=== PATIENT | female | born 2000 | race Hispanic/Latino ===

== ENCOUNTER → 2020-03-09 08:38 | Outpatient (CLI) | payer OTHER, SELFPAY ==
[2020-03-09 09:45] LABS: Add Manual Diff / Slide Review NO; Basophils Absolute Auto 0 /uL (0-100); Basophils Percent Auto 0.6 % (0-2); Eosinophils Absolute Auto 100 /uL (0-450); Eosinophils Percent Auto 1.2 % (2-4); Hematocrit 32.5 % (36-46); Hemoglobin 9.8 g/dL (12.0-16.0); Lymphocytes Absolute Auto 1400 /uL (1100-4500); Lymphocytes Percent Auto 27.5 % (25-40); Mean Corpuscular HGB Conc 30.3 % (30-36); Mean Corpuscular Volume 65.9 fL (80-100); Monocytes Absolute Auto 300 /uL (0-900); Monocytes Percent Auto 6.5 % (3-14); Neutrophils Absolute Auto 3200 /uL (1500-7000); Neutrophils Percent Auto 64.2 % (50-75); Platelet Count 242 X10^3/uL (150-400); Red Blood Cell Count 4.93 X10^6/uL (4.0-5.2); Red Cell Distribution Width 16.7 % (11.6-14.8)
[2020-03-09 10:03] LABS: Hypochromasia 2+; Microcytosis 3+
[2020-03-09 10:45] LABS: Alanine Aminotransferase 14 IU/L (<35); Albumin 4.1 g/dL (3.5-5.0); Albumin Globulin Ratio 1.2 (1.0-2.8); Alkaline Phosphatase 83 U/L (38-126); Aspartate Aminotransferase 21 IU/L (14-36); BUN Creatinine Ratio 23.8 (6-22); Bilirubin Total 0.5 mg/dL (0.2-1.3); Blood Urea Nitrogen 15 mg/dL (7-17); Calcium 9.5 mg/dL (8.4-10.2); Carbon Dioxide 29 mmol/L (22-32); Chloride 104 mmol/L (98-107); Cholesterol 162 mg/dL (140-199); Estimated Glomerular Filt Rate > 60.0 mL/min (>60); Globulin 3.3 g/dL (1.7-4.1); Glucose 88 mg/dL (70-100); HDL Cholesterol 72 mg/dL (40-60); HEMOLYSIS < 15 (0-50); LDL Cholesterol Calculated 81 mg/dL (<100); Potassium 4.2 mmol/L (3.4-5.1); Sodium 137 mmol/L (137-145); Total Protein 7.4 g/dL (6.3-8.2); Triglycerides 44 mg/dL (35-150)
== END ==
PROVIDERS: PCP Registered Nurse; Referring Provider Registered Nurse; Visit Provider Registered Nurse
DX: Z00.00 Encounter for general adult medical examination without abnormal findings (principal); Z82.49 Family history of ischemic heart disease and other diseases of the circulatory system
CPT/HCPCS: 36415; 80053; 80061; 85025

== ENCOUNTER → 2020-04-11 13:16 | Outpatient (CLI) | payer OTHER, SELFPAY ==
[2020-04-11 15:08] LABS: Add Manual Diff / Slide Review NO; Basophils Absolute Auto 0 /uL (0-100); Basophils Percent Auto 0.7 % (0-2); Eosinophils Absolute Auto 100 /uL (0-450); Hemoglobin 10.9 g/dL (12.0-16.0); Lymphocytes Absolute Auto 1800 /uL (1100-4500); Lymphocytes Percent Auto 28.5 % (25-40); Mean Corpuscular HGB Conc 30.2 % (30-36); Mean Corpuscular Hemoglobin 21.9 PG (26-34); Mean Corpuscular Volume 72.4 fL (80-100); Monocytes Absolute Auto 400 /uL (0-900); Monocytes Percent Auto 6.2 % (3-14); Neutrophils Absolute Auto 3900 /uL (1500-7000); Neutrophils Percent Auto 63.6 % (50-75); Platelet Count 277 X10^3/uL (150-400); Red Blood Cell Count 4.96 X10^6/uL (4.0-5.2); White Blood Cell Count 6.2 X10^3/uL (4.5-11.0)
[2020-04-11 16:07] LABS: Hypochromasia 1+; Microcytosis 1+
== END ==
PROVIDERS: PCP Registered Nurse; Referring Provider Registered Nurse; Visit Provider Registered Nurse
DX: D64.9 Anemia, unspecified (principal)
CPT/HCPCS: 36415; 85025

== ENCOUNTER → 2021-01-03 13:11 | Outpatient (CLI) | payer OTHER, SELFPAY ==
--- NOTE | 2021-01-03 13:13 | DI.RAD.S_ITS ---
PROCEDURE: XR ANKLE LT MIN 3V INDICATIONS: pain after fall TECHNIQUE: 3 views of the ankle were acquired. COMPARISON: None. FINDINGS: Bones: No fractures or dislocations. Ankle mortise is normally aligned. No suspicious bony lesions. Soft tissues: There is periarticular soft tissue swelling anterolaterally. No definite tibiotalar joint effusion with evaluation limited due to obliquity of the lateral view. Achilles tendon appears intact. IMPRESSION: 1. No fracture or dislocation. Dictated by: Karsten Torre M.D. on 01/03/2021 at 13:45 Approved by: Karsten Torre M.D. on 01/03/2021 at 13:49
== END ==
PROVIDERS: PCP Registered Nurse; Referring Provider Nurse Practitioner; Visit Provider Nurse Practitioner
DX: M25.572 Pain in left ankle and joints of left foot (principal); M79.89 Other specified soft tissue disorders
CPT/HCPCS: 73610

== ENCOUNTER → 2021-03-19 09:22 | Outpatient (CLI) | payer OTHER, SELFPAY ==
[2021-03-19 10:14] LABS: Add Manual Diff / Slide Review NO; Basophils Absolute Auto 0 /uL (0-100); Basophils Percent Auto 0.5 % (0-2); Eosinophils Absolute Auto 0 /uL (0-450); Eosinophils Percent Auto 0.6 % (2-4); Hematocrit 34.3 % (36-46); Hemoglobin 11.2 g/dL (12.0-16.0); Lymphocytes Absolute Auto 1200 /uL (1100-4500); Lymphocytes Percent Auto 16.7 % (25-40); Mean Corpuscular HGB Conc 32.5 % (30-36); Mean Corpuscular Hemoglobin 23.2 PG (26-34); Mean Corpuscular Volume 71.5 fL (80-100); Monocytes Absolute Auto 300 /uL (0-900); Monocytes Percent Auto 4.5 % (3-14); Neutrophils Absolute Auto 5700 /uL (1500-7000); Neutrophils Percent Auto 77.7 % (50-75); Platelet Count 254 X10^3/uL (150-400); Red Cell Distribution Width 14.6 % (11.6-14.8); White Blood Cell Count 7.3 X10^3/uL (4.5-11.0)
[2021-03-19 11:36] LABS: Appearance Urine UA CLEAR; Bilirubin Urine UA NEGATIVE (NEGATIVE); Color Urine UA YELLOW; Glucose Urine UA NEGATIVE (Negative); Ketones Urine UA TRACE (NEGATIVE); Leukocyte Esterase Urine UA NEGATIVE (NEGATIVE); Nitrite Urine UA NEGATIVE (Negative); Occult Blood Urine UA NEGATIVE (Negative); Protein Urine UA NEGATIVE (Negative); Urobilinogen Urine UA 0.2 E.U./dL (0.2)
[2021-03-19 15:57] LABS: HIV 1 & 2 Ab/Ag 4th Gen Combo NEGATIVE (NEGATIVE); Hep C Virus Ab w/Reflex Quant NEGATIVE s/c (NEGATIVE); Hepatitis B Surface Antigen NEGATIVE s/c (NEGATIVE)
[2021-03-20 11:54] LABS: Varicella IgG Antibody 2384 index (Immune >165)
[2021-04-26 11:05] LABS: RPR Screen REACTIVE
== END ==
PROVIDERS: PCP Registered Nurse; Referring Provider Obstetrics & Gynecology; Visit Provider Obstetrics & Gynecology
DX: Z34.01 Encounter for supervision of normal first pregnancy, first trimester (principal)
CPT/HCPCS: 36415; 80055; 81003; 86787; 86803; 86850; 86900; 86901; 87086; 87389

== ENCOUNTER → 2021-04-23 08:48 | Outpatient (CLI) | payer OTHER, SELFPAY ==
[2021-04-25 14:45] LABS: Treponema pallidum Antibodies Non Reactive (Non Reactive)
== END ==
PROVIDERS: PCP Registered Nurse; Referring Provider Obstetrics & Gynecology; Visit Provider Obstetrics & Gynecology
DX: A53.0 Latent syphilis, unspecified as early or late (principal); Z34.82 Encounter for supervision of other normal pregnancy, second trimester
CPT/HCPCS: 36415; 86780

== ENCOUNTER → 2021-05-21 08:59 | Outpatient (CLI) | payer OTHER, SELFPAY ==
[2021-05-23 21:07] LABS: AFP, Serum 66.6 ng/mL (.); Estriol, Free 1.49 ng/mL (.); Inhibin A, Dimeric 115.69 pg/mL (.); Inhibin A, MoM 0.84 (.); Maternal Ethnicity Other (.); Maternal Weight 191 lbs (.); Number of Fetuses No (.); OSBR Risk 1 IN 1477 (.); Results Report (.); Test Results *Screen Negative* (.); hCG, MoM 1.29 (.); hCG, Serum 31917 mIU/mL (.)
== END ==
PROVIDERS: PCP Registered Nurse; Referring Provider Obstetrics & Gynecology; Visit Provider Obstetrics & Gynecology
DX: Z34.02 Encounter for supervision of normal first pregnancy, second trimester (principal); Z3A.18 18 weeks gestation of pregnancy
CPT/HCPCS: 36415; 82105; 82677; 84702; 86336

== ENCOUNTER → 2021-06-15 13:50 | Outpatient (CLI) | payer OTHER, MEDICAID, SELFPAY ==
--- NOTE | 2021-06-15 13:51 | DI.US.S_ITS ---
PROCEDURE: US OB >= 14 WEEKS FETUS INDICATIONS: ANATOMY OUTSIDE/PRIOR DATING DATA: Last menstrual period (LMP): 01/14/2021 LMP-based estimated date of delivery (COLBY): 10/21/2020. First dating scan (date and location): 03/19/2021. Estimated date of delivery (COLBY) from first dating scan: 10/28/2021. The calculations are made using the ultrasound COLBY of 10/28/2021. TECHNIQUE: Real-time scanning was performed of the fetus, with image documentation and biometric measurements. COMPARISON: [facility], , US OB >= 14 WEEKS FETUS, 05/21/2021, 8:54. FINDINGS: General: A single living intrauterine gestation is present. Presentation: Breech. Placenta: Placental position is anterior right lateral , without previa. Amniotic fluid index: 13.9 cm, normal range is 5-24 cm. heart rate: 153 beats per minute. Maternal cervical canal: 3.4 cm cm long. Normal lower limit is 2.5 cm. biometrics: Biparietal diameter: 20 weeks 6 days Head circumference: 21 weeks 3 days Abdominal circumference: 21 weeks 2 days Femur length: 21 weeks 1 day Clinically estimated gestational age: 20 weeks 5 days Composite gestational age from present scan: 21 weeks 1 day Estimated weight and percentile: 407 g; 70 second percentile Anatomic survey: Neuro: Ventricles are non-dilated at less than 10 mm. Cisterna magna is normal at 3-11 mm. Cerebellum is normal in size and morphology. Nuchal skin fold: Normal at less than 6 mm between 14-21 weeks gestational age. Face: Not well seen. Spine: No evidence for spina bifida. Heart: 4-chambered heart is present, with normal ventricular outflow tracts. Diaphragm: Diaphragm is intact. Stomach: Left-sided stomach is present. Kidneys: No hydronephrosis. Normal is less than 5 mm in 2nd trimester, less than 7 mm in 3rd trimester. Cord: 3-vessel cord has orthotopic insertion. Bladder: Normal in size. Extremities: All 4 extremities identified. IMPRESSION: 1. Normal interval growth. 2. face suboptimally visualized; otherwise normal anatomy. Follow-up recommended. We strive to produce accurate, complete, and clear reports of imaging services. To assist us in improving patient care, this report was composed using standard report templates and voice recognition software. Therefore, it may contain abnormal punctuation, insertions and/or omissions. Occasional wrong-word or sound-alike substitutions may occur. Though we review the report and make efforts to correct it, we do recommend that the report be read carefully in proper context to recognize any text inaccuracies. Dictated by: Dylan VILLAFUERTE Interpreted: Sina Ballard MD on 06/15/2021 at 14:56 Approved by: Sina Ballard M.D. on 06/15/2021 at 15:15
== END ==
PROVIDERS: PCP Registered Nurse; Referring Provider Obstetrics & Gynecology; Visit Provider Obstetrics & Gynecology
DX: Z34.92 Encounter for supervision of normal pregnancy, unspecified, second trimester (principal); Z3A.21 21 weeks gestation of pregnancy
CPT/HCPCS: 76811

== ENCOUNTER → 2021-07-23 09:13 | Outpatient (CLI) | payer OTHER, MEDICAID, SELFPAY ==
[2021-07-23 12:06] LABS: Hematocrit 33.3 % (36-46)
[2021-07-23 12:15] LABS: GTT (PREG) 1 Hour PP 50gm Dose 73 mg/dL (76-139)
== END ==
PROVIDERS: Referring Provider Obstetrics & Gynecology; Visit Provider Obstetrics & Gynecology
DX: Z34.02 Encounter for supervision of normal first pregnancy, second trimester (principal); Z3A.36 36 weeks gestation of pregnancy
CPT/HCPCS: 36415; 82950; 85014; 85018

== ENCOUNTER → 2021-09-21 17:37 | Outpatient (CLI) | payer OTHER, MEDICAID, SELFPAY ==
[2021-09-22 13:20] LABS: Strep Grp B PCR NEG for Grp B Strep
== END ==
PROVIDERS: PCP Obstetrics & Gynecology; Visit Provider Obstetrics & Gynecology
DX: Z34.03 Encounter for supervision of normal first pregnancy, third trimester (principal)
CPT/HCPCS: 87653

== ENCOUNTER 2021-10-26 06:28 | Inpatient (IN) | payer OTHER, MEDICAID, SELFPAY ==
[2021-10-26] MEDS: LACTATED RINGERS 1,000 ML 100 ML IV ×2 (07:25→19:57)
--- NOTE | 2021-10-26 09:14 | P.HPOB_ITS ---
OB HPI Date/Time Date of admission: 10/26/21 Date Patient Seen: 10/26/21 Time Patient Seen: 08:50 History of Present Condition Chief complaint: induction : 1 Para: 0 Estimated Gestational Age (weeks): [id number] Narrative: Ana Maria Galicia is a 21 year old female with COLBY 10/21/2021 by LMP and consistent first-trimester ultrasound. She is being admitted at 40 weeks 5 days for induction of labor for post-term . was uncomplicated. On her initial labs she did have a positive RPR, but confirmatory treponemal testing was negative. She reports feeling some intermittent mild contractions since her last visit, but nothing strong or persistent. Denies leakage of fluid or vaginal bleeding. Feeling good movement. Indications Indication for induction OB: post dates History of Present care: good care Dating criteria: LMP confirmed by 1st trimester US Obstetrical complications: none Preadmission Labs Blood type: A (+) positive -: Antibody screen: negative, GBS status: negative, HBsAG: negative, HSV 1: negative, HSV 2: negative and RPR/VDLR: positive (Treponemal pallidum antibody nonreactive) -: Chlamydia screen: not detected and Gonorrhea screen: not detected -: Rubella: immune and Varicella: immune HCAB: negative PAP: Normal Quad screen: Normal 1 hr GTT: 73 Evaluation Evaluation Baseline heart rate: 135 Variability: Moderate (11-25) monitor accelerations: Present Category of Tracing: Reactive Status: Category l Dilation (cm): 1 Effacement (%): 50 Dilation: 1-2 cm Effacement: 40-50% station: -3 Position of cervix: posterior Consistency: soft Price score: 4 Comments: Pt had vasovagal reaction from discomfort with IV placement. She had drop in BP and felt symptomatic with feeling nauseated and lightheaded. heart rate pattern subsequently had a prolonged deceleration for 6 minutes, with enrique 60. FHR then recovered to baseline and continued with moderate variability and accelerations. Back to category 1. Has been category 1 for over 2hours now. Misoprostil ordered, placed at 0945 [facility] Medical History Ankle sprain Family history of heart disease Surgical History [place] teeth extracted (~2018) Family History (Updated 03/15/21 @ 12:20 by Alexa Noriega RN) Grandfather Hypertension Hyperlipidemia Grandmother Hypertension Hyperlipidemia Mental health problem Grandfather Diabetes mellitus History of heart disease Grandmother Hyperlipidemia Mother Healthy adult Father Healthy adult Social History marital status: unmarried,single details: FOB involved & supportive, living separately. number of children: 0 household members: family (Lives w/ parents.) lives independently: Yes caregiver/support person: No housing: house pets and animals: Yes (2 dogs: safe) education level: college (2 year college, professional degree) occupational status: employed ([employer].) current occupational exposures/hazards: No hyacinth/jehovah's witness: Quaker special hyacinth needs: No seatbelt use: always helmet use: Yes water heater temp set < 120 deg: Yes working smoke detector in home: Yes fire extinguisher in home: Yes carbon monox detector in home: Yes firearms in home: No do you feel safe at home: Yes Smoking Status: Never smoker second hand exposure: No alcohol intake: former (Pre-: occasional/social/rare. ) substance use type: does not use during the past year weight has: remained stable well-balanced diet: daily or most days daily servings fruits/ve or more times/day caffeine: No Type(s) of exercise: walking frequency: 3-4 times per week duration: 30-45 minutes/day Meds Home Medications and Allergies Home Medications Medication Instructions Recorded Confirmed Type prenat.vits,macho,[id number]-[id number] 1 tab PO DAILY 03/15/21 10/18/21 History Allergies Allergy/AdvReac Type Severity Reaction Status Date / Time No Known Drug Allergies Allergy Verified 09/27/21 11:29 OB Exam Narrative Exam Narrative: Vital signs: Temp 35.6C, BP 132/76, then 116/55 Pulse 65 HENMT Head: normal to inspection and normocephalic Resp Effort & Inspection: normal respiratory effort Cardio Rate: regular rate GI Inspection: normal to inspection External Female Exam: Yes normal external appearance Presentation: vertex Assessment and Plan Assessment and Plan Assessment and Plan narrative: 21 yo G1 female [id number] admitted for induction of labor for post-term . GBS negative. Unfavorable cervix. Misoprostol 25 mcg placed per vagina for cervical ripening to start her induction of labor. Time Spent with Patient Total time spent with greater than 50% in coordination of care (as documented) at patient's floor/unit and/or counseling patient:: 15-24 minutes
[2021-10-26] MEDS: miSOPROStoL 25 MCG TABLET VAG (09:34)
[2021-10-26 10:38] VITALS: BP 128/70
--- NOTE | 2021-10-26 15:47 | SUR.OPER ---
Supine on Padded OR bed, head on pillow, safety belt at thigh, arms secured on padded arm boards at <90 degrees abduction. Bump under right buttock. Legs uncrossed with pillow under knees, gel pad to heels, tape over blanket to lower legs.
[2021-10-26 15:57] LABS: COVID19 -Nasal RAPID Negative (Negative)
--- NOTE | 2021-10-26 16:05 | PM.OBPNLAB ---
Date/Time Date Patient Seen: 10/26/21 Time Patient Seen: 16:00 Pain Control Pain control: other (not in labor) Pelvic Exam Dilation (cm): 1 Effacement (%): 50 station: -3 Amniotic membrane status: Intact Contractions Contractions on admission: irregular (occasional) Contraction pattern: Irregular Contraction intensity: Mild Status status: Category ll Heart Rate Baseline: 135 Monitor Accelerations: Episodic Monitor Decelerations: Variable Monitor Variability: Moderate Comments: FHR with occasional severe variable deceleration, but occurs with standing up, positional Assessment and Plan Plan: Comments: EFM Cat 2? with?occasional variable deceleration but decleration is severe, occurs after standing for bathroom, positional. Also a moderate decel now when sitting uprigth in bed, forward. Discussion held that there may be umbilical cord low in the uterus or somewhere between the baby's body in the uterus, causing compression with standing. Discussed risk for development of recurrent deceleration is and severe or prolonged decelerations during labor with pushing phase. Would observe closely and if she started having recurrent moderate to severe variable decelerations, then would recommend proceeding with . Since there is the risk of a prolonged deceleration with active labor or with pushing, which can lead to a more urgent , I also gave her the option of proceeding with a primary section for delivery. ? Upon discussion, patient opted for section prior to labor rather than risk a prolonged deceleration during labor or urgent . I reviewed the procedure. Discussed surgical risks, less than 1% risk but includes risk of bleeding, infection, injury to adjacent organs including bowel and bladder as well as risk of injury to the baby. Verbal and written consent obtained. OR crew and family medicine physician on-call for Peds called.
--- NOTE | 2021-10-26 16:13 | P.OP.PRE_ITS ---
Pre-operative Note COVID-19 COVID-19 status: Negative Result date/Date tested (Pos, Neg/Pending): 10/26/21 Criteria for continued procedure: Delay expected to result in less-positive ultimate med/surg outcome Interval Note History & Physical reviewed/Exam performed by Physician: Yes Changes to H&P: No H&P completed within 30 days and has changed as indicated here:: No maternal c hanges. EFM Cat 2 with variable deceleration after standing for bathroom or with sitting forward, moderate to severe. upon discussion, patient opted for section prior to labor rather than risk Possible severe deceleration needs an urgent during labor.
[2021-10-26 16:28] LABS: Add Manual Diff / Slide Review NO; Basophils Absolute Auto 100 /uL (0-100); Basophils Percent Auto 0.7 % (0-2); Eosinophils Absolute Auto 100 /uL (0-450); Eosinophils Percent Auto 0.6 % (2-4); Hematocrit 32.8 % (36-46); Hemoglobin 11.2 g/dL (12.0-16.0); Lymphocytes Absolute Auto 1800 /uL (1100-4500); Lymphocytes Percent Auto 18.9 % (25-40); Mean Corpuscular HGB Conc 34.3 % (30-36); Mean Corpuscular Hemoglobin 28.6 PG (26-34); Mean Corpuscular Volume 83.4 fL (80-100); Monocytes Absolute Auto 700 /uL (0-900); Monocytes Percent Auto 7.2 % (3-14); Neutrophils Absolute Auto 6700 /uL (1500-7000); Neutrophils Percent Auto 72.6 % (50-75); Platelet Count 200 X10^3/uL (150-400); Red Blood Cell Count 3.93 X10^6/uL (4.0-5.2); White Blood Cell Count 9.3 X10^3/uL (4.5-11.0)
--- NOTE | 2021-10-26 17:22 | SUR.OPER ---
viable male infant delivered at 1717. cord blood and placenta to ob with rn
[2021-10-26 18:23] VITALS: BP 122/64; PULSE 62; RESP 13; TEMP 36.8; O2SAT 99
[2021-10-26 18:26] VITALS: BP 123/75; PULSE 68; RESP 13; O2SAT 99
[2021-10-26] MEDS: KETOROLAC 30 MG/ML VIAL IV (18:30)
[2021-10-26] MEDS: ONDANSETRON 4 MG/2 ML INJ IV ×2 (18:30→21:02)
[2021-10-26 18:39] VITALS: BP 134/68; PULSE 64; RESP 15; O2SAT 100
[2021-10-26 18:44] VITALS: BP 130/81; PULSE 66; RESP 12; O2SAT 99
--- NOTE | 2021-10-26 18:55 | P.OP_ITS ---
Operative Date/Time/Diagnoses Date of procedure: 10/26/21 Time of procedure: 17:30 Pre-op diagnosis: [id number] . Severe variable decelerations, positional, occuring prior to labor. Post-op diagnosis: same Procedure & Clinicians Procedure: Primary lower transverse section Same procedure as scheduled: Yes Indications: 21-year-old G1 female who was admitted for induction of labor this morning. She received misoprostol 25 mcg for unfavorable cervix. EFM was category 1, except after getting up to use the bathroom, she had a severe deceleration. This recurred with standing a 2nd time and position with sitting forward. Discussed possible umbilical cord compression, umbilical cord may be low in the uterus or between body in uterus around part of the body. Discussion held with her that these may start to recur routinely during labor and if significant decelerations repetitively, if not close to delivery then would recommend . Discussed risks for a prolonged deceleration that can lead to more urgent C- section. Discussed with her heart rate may remain fairly normal during labor with only occasional deceleration are correct with position change but discussion that risks for a prolonged deceleration was also held and patient given option for primary as well. I discussed if she had a , implications for a subsequent , decision regarding attempted or not and how she would need to be monitored during labor if she attempted this as well as not done at this hospital, would need to travel to another hospital to have availability for more urgent . After discussion among she and her significant other they desired proceeding with primary section. Surgeon: Amanda Ovalle Magistrate Assistant: Carrie Eastman Click Yes if Unassisted: No Anesthesia Type: Spinal Operative Notes Findings: Meconium fluid noted upon entry into the uterus. No visible cord upon entry into the uterus. No nuchal cord. Umbilical cord was normal in appearance. A baby boy was delivered with Apgars of 9 and 9. Weight 7lb7oz. Baby was vigorous on delivery, crying spontaneously. Closure Type: primary Estimated Blood Loss (mL): 400 Blood products transfused: none Procedure in detail: IV fluids: 1700 ml crystalloid Description of procedure: She was transferred from the center to the operating room. After an adequate level of spinal anesthesia was obtained, she was placed in the supine position, Yeung catheter was placed and she was prepped and draped in routine sterile fashion. A Pfannenstiel skin incision was made in the lower abdomen and carried down to the level of the fascia. The fascia was incised in the midline and extended transversely. The superior and inferior edges of the fascia were elevated and dissected off the rectus muscles with bovie, sharp and blunt dissection. The muscles were bluntly in the midline. The parietal peritoneum was elevated, incised and extended bluntly. The bladder blade was placed. The visceral peritoneum was elevated off the lower uterus, incised and the bladder flap was bluntly created. The bladder blade retractor was placed. A transverse incision was made in the lower uterus with final entry into the uterus being bluntly. The incision was extended transversely with blunt dissection. Meconium fluid was noted. The head was elevated to the uterine incision and delivered through the incision with some mild fundal pressure. Anterior and posterior shoulders followed by the body were delivered without difficulty. The cried spontaneously. Cord was clamped and cut and the infant was handed off to respiratory therapy who was present for delivery. Cord blood was obtained a specimen. The placenta was expressed with uterine massage and cord traction. It appeared intact with a normal three-vessel cord. The uterus was swept clean of adherent clots and membranes. The uterus was brought through the abdominal incision and closed in 2 layers with 0 Vicryl, the 1st layer being in running locking continuous fashion and the 2nd layer being in a vertical imbricating type fashion. Hemostasis was noted. The tubes and ovaries were inspected and noted to be normal. Posterior to the uterus was suctioned of some blood and fluid. The uterus was placed back into the maternal abdomen. The paracolic gutters were inspected and wiped of some minimal blood and fluid. The anterior cul-de-sac was inspected and some clot was removed. The uterine incision was re- inspected and good hemostasis was noted. The pelvis was irrigated and suctioned.. Repeat inspection showed continued hemostasis. The abdomen was closed. The muscles were re-approximated with 3 interrupted sutures of 0 Vicryl. The fascia was closed with running continuous suture of 0 Vicryl. The skin was closed with a subcuticular suture of 4 0 Monocryl. Steri-Strips and sterile Aquacel dressing was placed. She tolerated the procedure well and went to the recovery room in stable condition. Complications: none Post-operative Condition: stable Disposition: PACU Plan for aftercare: Transferred subsequently to the floor in good condition.
[2021-10-26] MEDS: diphenhydrAMINE 50 MG/ML VIAL 25 MG IV (21:02)
[2021-10-27] MEDS: KETOROLAC 30 MG/ML VIAL IV ×3 (03:26→15:38)
[2021-10-27 06:55] LABS: Add Manual Diff / Slide Review NO; Basophils Absolute Auto 100 /uL (0-100); Basophils Percent Auto 0.7 % (0-2); Eosinophils Absolute Auto 0 /uL (0-450); Eosinophils Percent Auto 0.1 % (2-4); Hematocrit 32.1 % (36-46); Hemoglobin 11.2 g/dL (12.0-16.0); Lymphocytes Absolute Auto 2400 /uL (1100-4500); Lymphocytes Percent Auto 20.6 % (25-40); Mean Corpuscular HGB Conc 34.8 % (30-36); Mean Corpuscular Hemoglobin 28.3 PG (26-34); Mean Corpuscular Volume 81.4 fL (80-100); Monocytes Absolute Auto 800 /uL (0-900); Monocytes Percent Auto 7.1 % (3-14); Neutrophils Absolute Auto 8300 /uL (1500-7000); Neutrophils Percent Auto 71.5 % (50-75); Platelet Count 210 X10^3/uL (150-400); Red Blood Cell Count 3.94 X10^6/uL (4.0-5.2); Red Cell Distribution Width 14.2 % (11.6-14.8); White Blood Cell Count 11.6 X10^3/uL (4.5-11.0)
[2021-10-27] MEDS: diphenhydrAMINE 50 MG/ML VIAL 25 MG IV (09:59)
--- NOTE | 2021-10-27 10:41 | P.PNOB_ITS ---
Subjective - OB Subjective Patient comments: no complaints, pain well controlled and tolerating diet baby status: doing well feeding status: exclusively breast feeding Narrative: Patient's nausea resolved. Yeung catheter removed at 5:30 a.m., no void yet. Urine had been mildly concentrated but adequate urine output. Will have her try to void soon. Lochia is normal. Date Patient Seen: 10/27/21 Time Patient Seen: 10:41 Exam Vital Signs (past 8 hours): Oxygen Delivery Method Room Air Narrative Exam Narrative: General: ?Well-appearing female Abdomen: ?Soft, nondistended, expected mild tenderness near the dressing, otherwise nontender. Fundus @U, firm, nontender Extremities: ?Trace pedal edema Objective Labs Result Diagrams: 10/27/21 06:48 Labs: Laboratory Results - last 24 hr 10/26/21 10/26/21 10/27/21 07:30 07:34 06:48 WBC 9.3 11.6 H RBC 3.93 L 3.94 L Hgb 11.2 L 11.2 L Hct 32.8 L 32.1 L MCV 83.4 81.4 MCH 28.6 28.3 MCHC 34.3 34.8 RDW 14.0 14.2 Plt Count 200 210 Neut % (Auto) 72.6 71.5 Lymph % (Auto) 18.9 L 20.6 L Nuckolls % (Auto) 7.2 7.1 Eos % (Auto) 0.6 L 0.1 L Baso % (Auto) 0.7 0.7 Neut # (Auto) 6700 8300 H Lymph # (Auto) 1800 2400 [place]olls # (Auto) 700 800 Eos # (Auto) 100 0 Baso # (Auto) 100 100 SARS-CoV-2 (PCR) Negative Assessment & Plan Plan day: 1 plan OB: routine postop care Comments: Will have her get up to try to void soon. Gradually increase ambulation. Time Spent With Patient Time: Total time spent is greater than 50% in coordination of care (as documented) at patient's floor/unit and/or counseling patient: Time with patient: less than 15 minutes
[2021-10-27] MEDS: ACETAMINOPHEN 325 MG TABLET 650 MG PO ×3 (12:01→22:38)
[2021-10-27] MEDS: OXYCODONE IR 5 MG TABLET PO (19:36)
[2021-10-27] MEDS: IBUPROFEN 600 MG TABLET PO (21:01)
[2021-10-28] MEDS: IBUPROFEN 600 MG TABLET PO ×2 (02:55→09:02)
[2021-10-28] MEDS: ACETAMINOPHEN 325 MG TABLET 650 MG PO (06:02)
[2021-10-28] MEDS: DOCUSATE 100 MG CAPSULE 200 MG PO (09:01)
[2021-10-28] MEDS: OXYCODONE IR 5 MG TABLET PO (09:02)
--- NOTE | 2021-10-28 11:26 | PM.DS.1 ---
History of Present Illness History of Present Illness Date Patient Seen: 10/28/21 Time Patient Seen: 10:50 Chief complaint: induction Narrative: Ana Maria Galicia is a 21 year old female who was admitted at 40 weeks 5 days for induction of labor for post-term . was? uncomplicated.? On her initial labs she did have a positive RPR, but confirmatory treponemal testing was negative. Discharge Providers Provider Date of admission: 10/26/21 06:28 Discharge Date: 10/28/21 Primary care physician: Shy Snow MD Consults: 10/26/21 18:47 Consult to Extrusion Engineer Routine Comment: Discharge provider: Amanda Ovalle MD Summary Hospital Course Discharge Diagnosis: term delivered byprimary section severe heart rate decelerations prior to labor Hospital Course: She was admitted and received misoprostol for cervical ripening. On admission she had a vasovagal reaction with placement of the IV with low blood pressure and resultant heart rate prolonged deceleration for 6 minutes with enrique to the 60s. Pt's BP improved and heart rate recovered and was category 1, with moderate variability and initially no decelerations. Misoprostol was placed for cervical ripening. On pt's routine use of the bathroom after returnign to bed heart rate would have a severe deceleration, as well as FHR deceleration sometimes when she bent over in bed. Discussion held of possible umbilical cord compression, possible umbilical cord low in the uterus between the baby and uterine wall or around baby, with a nuchal, bladder or limb.. Discussed may worsen with labor and if I saw recurrent significant decelerations, would recommend section verses. I also reviewed the option for primary section At that time, prior to labor, not to risk also prolonged deceleration during labor or urgent . She opted for proceeding with primary section rather than continuing with induction of labor with the risks. She underwent primary section without complications. No visible cord noted over the baby and no nuchal cord. Vigorous boy delivered with Apgars of 9 and 9, weighing 7 lb 7 oz. She had a normal postoperative course and met postoperative parameters. She reports feeling well today. She is passing flatus. Lochia remained normal. Baby is latching overall well using nipple shield. Her blood pressure has remained normal. She desires discharge home today and is ready for discharge. Baby is Doing well and isready for discharge as well. Status at Discharge Cognitive/behavioral status at discharge: oriented Functional status at discharge: independent ambulation Overall status at discharge: patient is progressing back to baseline Time Spent with Patient Time spent: Less than 30 minutes Exam Vital Signs (past 8 hours): Oxygen Delivery Method Room Air Narrative Exam Narrative: General: Well-appearing female Abdomen: Soft, nontender, nondistended. No skin erythema. Dressing is dry and intact. Fundus @U, firm, nontender Extremities: 1+ pedal edema bilaterally. Objective Labs Result Diagrams: 10/27/21 06:48 [facility] Medical History Ankle sprain Family history of heart disease Surgical History [place] teeth extracted (~2018) Family History (Updated 03/15/21 @ 12:20 by Alexa Noriega RN) Grandfather Hypertension Hyperlipidemia Grandmother Hypertension Hyperlipidemia Mental health problem Grandfather Diabetes mellitus History of heart disease Grandmother Hyperlipidemia Mother Healthy adult Father Healthy adult Social History marital status: unmarried,single details: FOB involved & supportive, living separately. 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 ) substance use type: does not use during the past year weight has: remained stable well-balanced diet: daily or most days daily servings fruits/ve or more times/day caffeine: No Type(s) of exercise: walking frequency: 3-4 times per week duration: 30-45 minutes/day Discharge Assessment & Plan Assessment and Plan Assessment: 40 week , delivered by section Normal post-operative course. Baby doing well. Plan of Treatment: Discharge home Follow-up in 1-2 weeks Discharge Plan Discharge Plan Patient Disposition: Home Provider Discharge Comment: status post primary at term Discharge orders & Medications Prescriptions: New acetaminophen 325 mg Tablet 650 mg PO Q4HR PRN (Reason: Fever/Mild Pain (1-3)) Qty: 20 0RF docusate sodium 100 mg Capsule 200 mg PO DAILY Qty: 20 0RF ibuprofen 600 mg Tablet 600 mg PO Q6HR PRN (Reason: pain, mild) Qty: 60 0RF oxycodone 5 mg Tablet 5 mg PO Q4H PRN (Reason: Pain, Moderate (4-6)) Qty: 14 0RF Continued prenat.vits,macho,[id number] Tablet 1 tab PO DAILY Follow up/Referrals: Amanda Ovalle MD [Physician] - 1 Week ( Appointment for dressing removal in 1-2 weeks) Shy Snow MD [Primary Care Provider] - 1 Week (Please call OB clinic and make 1 week follo up apt to have bandage removed and incision assessed) Discharge Health Status Multidrug resistant organism: No MDRO Diet/Activity/Treatments Diet: Regular Skin/Wound/Dressing Care Report to your healthcare provider any signs of infection, such as:: chills, fever, increased pain, unusual drainage and unusual redness Visit Report/Discharge Packet Instructions: DI for , DI for Depression Stand Alone Forms: Discharge: Care Discharge Data Primary Care Provider: Shy Snow Attending Provider: Amanda Ovalle
== END 2021-10-28 11:50 | disposition home or self-care (01) | DRG 788 ==
PROVIDERS: Admitting Provider Obstetrics & Gynecology; Referring Provider Obstetrics & Gynecology; Visit Provider Obstetrics & Gynecology
PROC: 10D00Z1 Extraction of Products of Conception, Low, Open Approach (ICD-10-PCS; CPT 59514; principal; 2021-10-26 16:00)
DX: O76 Abnormality in fetal heart rate and rhythm complicating labor and delivery (principal); Z3A.40 40 weeks gestation of pregnancy; Z37.0 Single live birth; O77.0 Labor and delivery complicated by meconium in amniotic fluid; O48.0 Post-term pregnancy; Z20.822 Contact with and (suspected) exposure to COVID-19
CPT/HCPCS: 36415; 59050; 59200; 59510; 59514; 59515; 85025; 86850; 86900; 86901; 87635; C9803; G0378; G0379; J0171; J1100; J1200; J1885; J2274; J2405

== ENCOUNTER → 2021-11-05 15:04 | Outpatient (CLI) | payer OTHER, MEDICAID, SELFPAY ==
[2021-11-05 16:02] LABS: Add Manual Diff / Slide Review NO; Basophils Absolute Auto 100 /uL (0-100); Basophils Percent Auto 0.6 % (0-2); Eosinophils Absolute Auto 100 /uL (0-450); Eosinophils Percent Auto 1.6 % (2-4); Hemoglobin 11.2 g/dL (12.0-16.0); Lymphocytes Absolute Auto 2200 /uL (1100-4500); Lymphocytes Percent Auto 23.5 % (25-40); Mean Corpuscular HGB Conc 34.1 % (30-36); Mean Corpuscular Hemoglobin 28.2 PG (26-34); Mean Corpuscular Volume 82.9 fL (80-100); Monocytes Absolute Auto 600 /uL (0-900); Monocytes Percent Auto 6.3 % (3-14); Neutrophils Absolute Auto 6300 /uL (1500-7000); Platelet Count 289 X10^3/uL (150-400); Red Blood Cell Count 3.98 X10^6/uL (4.0-5.2); White Blood Cell Count 9.3 X10^3/uL (4.5-11.0)
[2021-11-05 16:25] LABS: Alanine Aminotransferase 24 IU/L (<35); Aspartate Aminotransferase 22 IU/L (14-36); BUN Creatinine Ratio 15.4 (6-22); Blood Urea Nitrogen 10 mg/dL (7-17); Creatinine Urine Random 92.6 mg/dL; Estimated Glomerular Filt Rate > 60 mL/min (>60); Protein (Total) Urine Random 11 mg/dL (0-12); Protein Creatinine Ratio Urine 0.11 GRAM/24H
== END ==
PROVIDERS: PCP Obstetrics & Gynecology; Referring Provider Obstetrics & Gynecology; Visit Provider Obstetrics & Gynecology
DX: O16.5 Unspecified maternal hypertension, complicating the puerperium (principal)
CPT/HCPCS: 82565; 82570; 84156; 84450; 84460; 84520; 84550; 85025

== ENCOUNTER → 2021-11-06 15:43 | Outpatient (CLI) | payer OTHER, MEDICAID, SELFPAY ==
[2021-11-06 16:46] LABS: Hematocrit 32.5 % (36-46); Mean Corpuscular HGB Conc 33.9 % (30-36); Mean Corpuscular Hemoglobin 28.1 PG (26-34); Mean Corpuscular Volume 82.7 fL (80-100); Platelet Count 272 X10^3/uL (150-400); Red Blood Cell Count 3.93 X10^6/uL (4.0-5.2); Red Cell Distribution Width 14.2 % (11.6-14.8); White Blood Cell Count 8.8 X10^3/uL (4.5-11.0)
[2021-11-06 17:10] LABS: Alanine Aminotransferase 20 IU/L (<35); Albumin 3.6 g/dL (3.5-5.0); Alkaline Phosphatase 126 U/L (38-126); Aspartate Aminotransferase 20 IU/L (14-36); BUN Creatinine Ratio 16.2 (6-22); Bilirubin Total 0.5 mg/dL (0.2-1.3); Blood Urea Nitrogen 12 mg/dL (7-17); Calcium 8.9 mg/dL (8.4-10.2); Carbon Dioxide 27 mmol/L (22-32); Chloride 105 mmol/L (98-107); Estimated Glomerular Filt Rate > 60 mL/min (>60); Globulin 3.5 g/dL (1.7-4.1); Glucose 85 mg/dL (70-100); HEMOLYSIS < 15 (0-50); Potassium 4.3 mmol/L (3.4-5.1); Sodium 139 mmol/L (137-145); Total Protein 7.1 g/dL (6.3-8.2)
== END ==
PROVIDERS: Referring Provider Obstetrics & Gynecology; Visit Provider Obstetrics & Gynecology
DX: O13.5 Gestational [pregnancy-induced] hypertension without significant proteinuria, complicating the puerperium (principal)
CPT/HCPCS: 36415; 80053; 85027

== ENCOUNTER → 2021-12-10 10:09 | Outpatient (CLI) | payer OTHER, MEDICAID, SELFPAY ==
[2021-12-10 14:05] LABS: COVID19 -Nasal RAPID Negative (Negative)
== END ==
PROVIDERS: Visit Provider Surgery
DX: Z01.812 Encounter for preprocedural laboratory examination (principal); Z20.822 Contact with and (suspected) exposure to COVID-19
CPT/HCPCS: 87635; C9803

== ENCOUNTER 2021-12-11 12:00 | Day surgery (SDC) | payer OTHER, MEDICAID, SELFPAY ==
[2021-12-06 07:58] VITALS: BMI 33.3
[2021-12-11] MEDS: LACTATED RINGERS 1,000 ML 42 ML IV (12:33)
[2021-12-11 12:52] VITALS: BP 113/78; PULSE 78; RESP 16; TEMP 36.8; O2SAT 98; BMI 33.3
--- NOTE | 2021-12-11 13:27 | PM.PREOP ---
Pre-operative Note COVID-19 COVID-19 status: Negative Result date/Date tested (Pos, Neg/Pending): 12/10/21 Interval Note History & Physical reviewed/Exam performed by Physician: Yes Changes to H&P: No ASA Class (for procedural sedation): II
[2021-12-11] MEDS: BUPIVACAINE 0.5% W/ EPI (PF) 30 ML VIAL 15 ML INJ (14:12)
--- NOTE | 2021-12-11 14:17 | SUR.OPER ---
Left lateral (right side up) on a johnston bag, head on pillow, gel axillary roll in place, bottom leg bent with gel pad under knee to foot, upper leg straight and supported with pillows. Upper arm supported by pillows and secured over bottom arm to padded arm board. Safety belt over chest, tape over blanket lower legs.
[2021-12-11] MEDS: ACETAMINOPHEN IV 1,000 MG/100 ML VIAL 400 MG IV (14:24)
--- NOTE | 2021-12-11 14:32 | PM.OP.1 ---
Operative Date/Time/Diagnoses Date of procedure: 12/11/21 Time of procedure: 14:32 Pre-op diagnosis: Pilonidal abscess Post-op diagnosis: same Procedure & Clinicians Procedure: Incision and drainage of pilonidal abscess Same procedure as scheduled: Yes Surgeon: Cj Mishra Operative Notes Procedure in detail: The patient was brought to the operating room, placed on the table in the supine position and general anesthesia was induced. The patient was then positioned in the left lateral decubitus position. The gluteal cleft area was prepped and draped in the usual fashion. A time-out was performed. There was a 3 cm x 2 cm fluctuant area in the gluteal cleft with a midline pit at its inferior edge. We injected some Marcaine into the skin and tissue and made an incision from the midline pit through the fluctuant area. The incision was roughly 4 cm. There was some gelatinous tissue that was removed from the wound cavity with a combination of sharp dissection using Metzenbaum scissors and blunt dissection using a curette and a Ray-[place]. Once the base of the abscess cavity was thoroughly cleaned out additional local was injected around the edges of the wound and a single 4 x 4 was packed into the wound cavity. Additional 4x4s were layered on top and held in place with a single piece of tape followed by mesh panties. EBL: 10 mL Specimen: None Post-operative Condition: stable Disposition: PACU
[2021-12-11 14:40] VITALS: BP 99/46; PULSE 58; RESP 12; TEMP 36.3; O2SAT 98
[2021-12-11 14:44] VITALS: BP 101/57; PULSE 60; RESP 18; O2SAT 99
[2021-12-11 14:52] VITALS: BP 97/63; PULSE 67; RESP 18; O2SAT 99
[2021-12-11 15:02] VITALS: BP 109/59; PULSE 59; RESP 16; TEMP 36.6; O2SAT 100
== END 2021-12-11 15:14 | disposition home or self-care (01) ==
PROVIDERS: Referring Provider Surgery; Visit Provider Surgery
PROC: (CPT 10080; principal; 2021-12-11 13:30)
DX: L05.01 Pilonidal cyst with abscess (principal); I10 Essential (primary) hypertension
CPT/HCPCS: 10080; 00300; 00813; J0131; J1100; J1170; J1885; J2405; J2704

== ENCOUNTER → 2022-07-19 16:03 | Outpatient (CLI) | payer OTHER, MEDICAID, SELFPAY ==
[2022-07-19 19:28] LABS: Influenza A - CEPHEID Flu A NEGATIVE (NEGATIVE); Influenza B - CEPHEID Flu B NEGATIVE (NEGATIVE); Respiratory Syncytial Virus Negative (Negative)
[2022-07-19 19:37] LABS: COVID-19 CEPHEID 4-PLEX PCR Negative (Negative)
== END ==
PROVIDERS: Visit Provider Student in an Organized Health Care Education/Training Program
DX: J06.9 Acute upper respiratory infection, unspecified (principal); Z20.822 Contact with and (suspected) exposure to COVID-19
CPT/HCPCS: 0241U

== ENCOUNTER → 2024-11-26 18:18 | Outpatient (CLI) | payer OTHER, SELFPAY ==
[2024-11-26 20:48] LABS: Influenza A - CEPHEID Flu A NEGATIVE (NEGATIVE); Influenza B - CEPHEID Flu B NEGATIVE (NEGATIVE)
[2024-11-26 20:57] LABS: COVID-19 CEPHEID 4-PLEX PCR Negative (Negative)
== END ==
PROVIDERS: Visit Provider Nurse Practitioner Family
DX: J02.9 Acute pharyngitis, unspecified (principal); R05.1 Acute cough
CPT/HCPCS: 87070; 87147; 87637